=== PATIENT | female | born 1995 | race Caucasian/White ===

== ENCOUNTER → 2019-05-28 | Outpatient (CLI) | payer OTHER ==
--- NOTE | 2019-05-28 19:40 | US ---
EXAMINATION TYPE: Transabdominal DATE OF EXAM: 05/28/2019 3:45 PM COMPARISON: NONE CLINICAL HISTORY: [id number] Confirm dates. EXAM PERFORMED: Transabdominal (TA) EXAM MEASUREMENTS: GESTATIONAL AGE / DATING Physician Established: Not yet established Dates by LMP: (9 weeks/6 days) EDC: 12/25/2019 Dates by First Scan: No previous. Dates by Current Scan for: (9 weeks/1 day) EDC: 12/30/2019 MATERNAL ANATOMY Uterus: 10.6 x 8.8 x 6.2cm Right Ovary: 2.9 x 2.4 x 1.9cm Left Ovary: 2.9 x 2.6 x 2.3cm Post CDS / Adnexa: wnl Presence of free fluid: no Presence of corpus luteal cyst: in left ovary = 1.5 x 2.0 x 0.8cm Presence of subchorionic bleed: no GESTATION / SURVEY CRL: 2.4cm (9 weeks/1 day) Yolk Sac (normal less than 6mm): not seen Heart Rate: 176 bpm Rhythm: Normal IUP: Viable IUP Date of LMP: 03/20/2019 Beta HcG (if available): Not available at this time Single, viable IUP, 9 weeks/1 day, EDC: 12/30/2019, HR 176bpm. IMPRESSION: Single, viable IUP, 9 weeks/1 day, EDC: 12/30/2019, HR 176bpm.
== END ==
LOC: RADUSWWP 15:20
PROVIDERS: ATTEND Obstetrics & Gynecology
DX: Z36.89 Encounter for other specified antenatal screening (principal); Z3A.09 9 weeks gestation of pregnancy
CPT/HCPCS: 76801